=== PATIENT | female | born 2000 | race Caucasian/White ===

== ENCOUNTER 2021-01-28 | Emergency (ER) | payer OTHER, BC ==
[2021-01-28 20:51] LABS: HEMATOCRIT 44.5 % (37.0-47.0); HEMOGLOBIN 15.2 g/dl (12.0-16.0); IMMATURE GRANULOCYTES 0.2 % (0.0-5.0); MEAN CELL VOLUME 85.7 fL CALC (80.0-100.0); MEAN CORPUSCULAR HGB 29.3 pG CALC (26.0-32.0); MEAN CORPUSCULAR HGB CONC 34.2 g/dL CAL (32.0-36.0); NEUT# 2.7 thou/uL (2.00-7.15); RED BLOOD COUNT 5.19 mill/uL (4.20-5.60); RED CELL DISTRI WIDTH 12.1 % (11.5-15.5)
[2021-01-28 20:56] LABS: URINE BILIRUBIN - DIPSTICK NEGATIVE (NEGATIVE); URINE BLOOD DIPSTICK NEGATIVE (NEGATIVE); URINE COLOR YELLOW; URINE GLUCOSE - DIPSTICK NEGATIVE (NEGATIVE); URINE KETONE NEGATIVE (NEGATIVE); URINE LEUK ESTERASE NEGATIVE (NEGATIVE); URINE NITRITE - DIPSTICK NEGATIVE (Negative); URINE PROTEIN - DIPSTICK NEGATIVE (NEG-TRACE); URINE SPECIFIC GRAVITY 1.025
[2021-01-28 21:02] LABS: ALBUMIN 4.3 g/dL (3.2-5.0); ALKALINE PHOSPHATASE 50 u/l (38-126); AMYLASE 42 u/l (30-110); ANION GAP 9 (6-22 (CALC)); BILIRUBIN, TOTAL 0.7 mg/dL (0.0-1.4); BUN 6 mg/dL (7-17); BUN/CREATININE RATIO 12 (12-20 (CALC)); CARBON DIOXIDE 29 mmol/l (22-30); CHLORIDE 102 mmol/l (95-108); CREATININE 0.6 mg/dL (0.5-1.0); GFR > 60 ML/MIN (>=60 (CALC)); GFR FOR AFR.AMER. > 60 ML/MIN (>=60 (CALC)); LIPASE 57 u/l (23-300); POTASSIUM 3.8 mmol/l (3.5-5.1); SGOT/AST 20 u/l (14-36); SODIUM 137 mmol/l (137-146); TOTAL PROTEIN 6.9 g/dL (6.3-8.2)
[2021-01-29] MEDS ORDERED: ONDANSETRON4 MG PO ×2 (01:10→01:14)
== END 2021-01-29 01:20 | disposition home or self-care (01) | DRG 392 ==
PROVIDERS: Emergency Medicine
DX: R11.2 Nausea with vomiting, unspecified (principal); R19.7 Diarrhea, unspecified; E86.0 Dehydration; Z97.5 Presence of (intrauterine) contraceptive device

== ENCOUNTER 2021-08-19 10:10 | Emergency (ER) | payer OTHER, BC ==
[~2021-08-19] VITALS: Ht 180.3 cm; Wt 84.0 kg
[~2021-08-19 10:10] MED LIST: ONDANSETRON4 MG PO
[2021-08-19 12:31] LABS: URINE BILIRUBIN - DIPSTICK NEGATIVE (NEGATIVE); URINE BLOOD DIPSTICK NEGATIVE (NEGATIVE); URINE COLOR YELLOW; URINE GLUCOSE - DIPSTICK NEGATIVE (NEGATIVE); URINE KETONE NEGATIVE (NEGATIVE); URINE LEUK ESTERASE NEGATIVE (NEGATIVE); URINE PROTEIN - DIPSTICK NEGATIVE (NEG-TRACE); URINE UROBILINOGEN - DIPSTICK 0.2 E.U./dL (0.2)
[2021-08-19 12:36] LABS: URINE NITRITE - DIPSTICK NEGATIVE (Negative)
[2021-08-19] MEDS ORDERED: ULTRAM50 MG PO (13:34)
[2021-08-19] MEDS ORDERED: FLEXERIL5 M1 PO (13:34)
[2021-08-19] MEDS ORDERED: MEDDOSEPAK PO (13:34)
[2021-08-19 14:02] VITALS: BP 117/63
== END 2021-08-19 14:02 | disposition home or self-care (01) | DRG 563 ==
LOC: ED 10:10
DX: S39.012A Strain of muscle, fascia and tendon of lower back, initial encounter (principal); M54.42 Lumbago with sciatica, left side; X50.0XXA Overexertion from strenuous movement or load, initial encounter; Y93.89 Activity, other specified

== ENCOUNTER 2021-10-12 09:12 | Emergency (ER) | payer OTHER, BC ==
[~2021-10-12] VITALS: Ht 180.3 cm; Wt 90.0 kg
[~2021-10-12 09:12] MED LIST changes: +FLEXERIL5 M1 PO; +MEDDOSEPAK PO; +ULTRAM50 MG PO
[2021-10-12] MEDS ORDERED: SUMATRIPTAN25 MG PO (11:27)
[2021-10-12 11:34] VITALS: BP 113/69
== END 2021-10-12 11:34 | disposition home or self-care (01) | DRG 103 ==
LOC: ED 09:12
DX: R51.9 Headache, unspecified (principal); F17.200 Nicotine dependence, unspecified, uncomplicated

== ENCOUNTER 2022-08-16 14:49 | Emergency (ER) | payer OTHER ==
[~2022-08-16] VITALS: Ht 180.3 cm; Wt 93.6 kg
[2022-08-16] VITALS (11 sets, daily range): BP systolic 96–110; BP diastolic 55–72
[~2022-08-16 14:49] MED LIST changes: +SUMATRIPTAN25 MG PO
[2022-08-16] MEDS ORDERED: PRENATA3 PO (15:07)
[2022-08-16 16:08] LABS: HEMATOCRIT 43.1 % (37.0-47.0); HEMOGLOBIN 14.9 g/dl (12.0-16.0); MEAN CELL VOLUME 86.5 fL CALC (80.0-100.0); MEAN CORPUSCULAR HGB 29.9 pG CALC (26.0-32.0); MEAN CORPUSCULAR HGB CONC 34.6 g/dL CAL (32.0-36.0); NEUT# 4.31 thou/uL (2.00-7.15); RED BLOOD COUNT 4.98 mill/uL (4.20-5.60); RED CELL DISTRI WIDTH 12.3 % (11.5-15.5)
[2022-08-16 16:19] LABS: ALBUMIN 4.3 g/dL (3.2-5.0); ALKALINE PHOSPHATASE 34 u/l (38-126); ANION GAP 18 (6-22 (CALC)); BILIRUBIN, TOTAL 0.7 mg/dL (0.0-1.4); BUN 8 mg/dL (7-17); BUN/CREATININE RATIO 17 (12-20 (CALC)); CHLORIDE 105 mmol/l (95-108); CREATININE 0.5 mg/dL (0.5-1.0); GFR FOR AFR.AMER. > 60 ML/MIN (>=60 (CALC)); GFR OTHER RACES > 60 ML/MIN (>=60 (CALC)); POTASSIUM 3.9 mmol/l (3.5-5.1); SGOT/AST 27 u/l (14-36); SODIUM 135 mmol/l (137-146); TOTAL PROTEIN 6.8 g/dL (6.3-8.2)
[2022-08-16 16:23] LABS: CARBON DIOXIDE 16 mmol/l (22-30)
== END 2022-08-16 18:05 | disposition home or self-care (01) | DRG 392 ==
LOC: ED 14:49
PROVIDERS: Family Medicine
DX: R11.2 Nausea with vomiting, unspecified (principal); R55 Syncope and collapse

== ENCOUNTER 2023-01-19 19:55 | Emergency (ER) | payer OTHER ==
[~2023-01-19] VITALS: Ht 180.3 cm; Wt 102.0 kg
[~2023-01-19 19:55] MED LIST changes: +PRENATA3 PO
[2023-01-19 20:41] LABS: BASO% 0.1 % (0-3); EOS% 1.1 % (0-8); IMMATURE GRANULOCYTES 0.3 % (0.0-5.0); LYMPH% 15.2 % (15-41); MEAN CELL VOLUME 86.2 fL CALC (80.0-100.0); MEAN CORPUSCULAR HGB 29.5 pG CALC (26.0-32.0); MEAN CORPUSCULAR HGB CONC 34.2 g/dL CAL (32.0-36.0); MONO% 8.2 % (2-13); NEUT# 10.58 thou/uL (2.00-7.15); NEUT% 75.1 % (42-76); RED BLOOD COUNT 4.21 mill/uL (4.20-5.60); RED CELL DISTRI WIDTH 12.9 % (11.5-15.5)
[2023-01-19] MEDS ORDERED: OMEPRAZOLE20 MG PO (20:42)
[2023-01-19 20:44] LABS: HEMATOCRIT 36.3 % (37.0-47.0); HEMOGLOBIN 12.4 g/dl (12.0-16.0)
[2023-01-19 20:51] LABS: ALBUMIN 3.8 g/dL (3.2-5.0); BUN 7 mg/dL (7-17); BUN/CREATININE RATIO 14 (12-20 (CALC)); CHLORIDE 106 mmol/l (95-108); CREATININE 0.5 mg/dL (0.5-1.0); GFR FOR AFR.AMER. > 60 ML/MIN (>=60 (CALC)); GFR OTHER RACES > 60 ML/MIN (>=60 (CALC)); SGOT/AST 24 u/l (14-36); SODIUM 133 mmol/l (137-146); TOTAL PROTEIN 6.6 g/dL (6.3-8.2)
[2023-01-19 20:53] LABS: POTASSIUM 3.8 mmol/l (3.5-5.1)
[2023-01-19 20:57] LABS: ALKALINE PHOSPHATASE 58 u/l (38-126); ANION GAP 9 (6-22 (CALC)); BILIRUBIN, TOTAL 0.3 mg/dL (0.02-1.3); CARBON DIOXIDE 22 mmol/l (22-30)
[2023-01-19 21:30] VITALS: BP 117/80
[2023-01-19 21:33] LABS: BETA-HCG, QUANT(RESULT NUMBER) 32079 mIU/mL
== END 2023-01-19 21:35 | disposition other institution (70) | DRG 998 ==
LOC: ED 19:55
PROVIDERS: Family Medicine
DX: O75.89 Other specified complications of labor and delivery (principal); Z3A.30 30 weeks gestation of pregnancy; R10.9 Unspecified abdominal pain

== ENCOUNTER 2023-11-22 21:13 | Emergency (ER) | payer BC, OTHER ==
[~2023-11-22] VITALS: Ht 180.3 cm; Wt 99.8 kg
[~2023-11-22 21:13] MED LIST changes: +OMEPRAZOLE20 MG PO
[2023-11-23] MEDS ORDERED: MELOXICAM7.5 MG PO (03:17)
[2023-11-23] MEDS ORDERED: MEDDOSEPAK PO (03:17)
[2023-11-23 04:24] VITALS: BP 110/72
== END 2023-11-23 04:24 | disposition home or self-care (01) | DRG 552 ==
LOC: ED 21:13
DX: M47.816 Spondylosis without myelopathy or radiculopathy, lumbar region (principal)